=== PATIENT | male | born 1935 | race Caucasian/White ===

== ENCOUNTER 2018-06-03 03:19 | Emergency (ER) | payer MEDICARE, OTHER ==
[~2018-06-03] VITALS: Ht 172.7 cm; Wt 50.0 kg
[2018-06-03 03:22] VITALS: BP 130/60
== END 2018-06-03 04:30 | disposition left against medical advice (07) ==
LOC: ER 03:19
DX: Z53.21 Procedure and treatment not carried out due to patient leaving prior to being seen by health care provider (principal)